=== PATIENT | female | born 2000 | race Caucasian/White ===

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

== ENCOUNTER 2021-07-20 19:49 | Inpatient (IN) | payer OTHER ==
[2021-07-20] MEDS ORDERED: PENICILLIN G POTASSIUM IV 5 MU in D5W MINI-BAG PLUS 100 ML IV STA (21:13)
[2021-07-20] MEDS ORDERED: LACTATED RINGER'S 1000 ML IV STA (21:13)
[2021-07-20] MEDS ORDERED: OXYTOCIN DRIP 30 UNITS in IV 1 EA IV SCH (21:15)
[2021-07-20] MEDS ORDERED: LIDOCAINE 1% MDV 20ML VIAL INFIL PRN (21:15)
[2021-07-20] MEDS ORDERED: OXYTOCIN DRIP 30 UNITS in IV 1 EA IV PRN ×4 (21:15)
[2021-07-20 21:45] LABS: HEMATOCRIT 26.4 % (36.0-47.0); MEAN CORPUSCULAR HEMOGLOBIN 29.4 pg (27.0-33.0); MEAN CORPUSCULAR HGB CONC 34.1 g/dl (32.0-36.5); MEAN CORPUSCULAR VOLUME 86.3 fl (80.0-96.0); PLATELET COUNT, AUTOMATED 291 10^3/uL (150-450); RED BLOOD COUNT 3.06 10^6/uL (4.00-5.40); WHITE BLOOD COUNT 22.1 10^3/uL (4.0-10.0)
[2021-07-20] MEDS: LR 1,000 ML IV SCH (21:49)
[2021-07-21] VITALS (48 sets, daily range): BP systolic 94–155; BP diastolic 50–115
[2021-07-21] MEDS: LR 1,000 ML IV SCH ×3 (00:26→07:33)
[2021-07-21] MEDS ORDERED: FENTANYL 2MCG/ML ROPIVACAINE 0.2% IN 0.9% NACL 100ML IVBAG As Ordered ONE (00:29)
[2021-07-21] MEDS ORDERED: FENTANYL/ROPIVACAINE/NACL BAG 100 ML EPIDURAL SCH (00:30)
[2021-07-21] MEDS ORDERED: ONDANSETRON 4MG/2ML VIAL IV PRN (00:30)
[2021-07-21] MEDS ORDERED: LR 500 ML IV PRN (00:30)
[2021-07-21] MEDS ORDERED: EPIDURAL/PCA KEYS XX PRN (00:30)
[2021-07-21] MEDS ORDERED: NALOXONE INJ 0.4MG/1ML VIAL (J2310 PER 1MG) IV PRN (00:30)
[2021-07-21] MEDS ORDERED: diphenhydrAMINE 50MG/ML VIAL (J1200) IV PRN (00:30)
[2021-07-21] MEDS: PENICILLIN G POTASSIUM IV 2.5 MU in IV 1 EA IV SCH ×2 (02:03→07:30)
[2021-07-21] MEDS: ePHEDrine SULFATE 25 MG/5 ML(5MG/ML) SYRINGE IVP PRN ×3 (03:11→03:18)
[2021-07-21] MEDS ORDERED: OXYTOCIN INJ 10 UNITS/ML VIAL (J2590) As Ordered ONE (08:04)
[2021-07-21] MEDS ORDERED: OXYTOCIN INJ 10 UNITS/ML VIAL (J2590) IV ONE ×2 (08:15→09:40)
[2021-07-21 09:29] LABS: CORD GAS ABE A -5.1; CORD GAS HCO3 A 20.7 MEQ/L; CORD GAS O2 SAT A 72.2 %; CORD GAS PCO2 A 41.2 mmHg; CORD GAS PH A 7.319 UNITS; CORD GAS PO2 A 30.8 mmHg; CORD GAS SBC A 19.7 MEQ/L
[2021-07-21 09:31] LABS: CORD GAS ABE V -3.4; CORD GAS HCO3 V 22.9 MEQ/L; CORD GAS O2 SAT V 55.4 %; CORD GAS PCO2 V 45.6 mmHg; CORD GAS PH V 7.319 UNITS; CORD GAS SBC V 20.7 MEQ/L; CORD GAS TCO2 V 24.3 MEQ/L
[2021-07-21] MEDS ORDERED: DIBUCAINE 1% OINTMENT 30GM TOP PRN (10:00)
[2021-07-21] MEDS ORDERED: DOCUSATE SODIUM 100MG CAPSULE PO PRN (10:00)
[2021-07-21] MEDS ORDERED: METHYLERGONOVINE MALEATE 0.2 MG TAB PO PRN (10:00)
[2021-07-21] MEDS ORDERED: ACETAMINOPHEN 500 MG TAB PO PRN (10:00)
[2021-07-21] MEDS ORDERED: LR 1,000 ML IV SCH (10:00)
[2021-07-21] MEDS ORDERED: ANUSOL HC CREAM 30GM TOP PRN (10:00)
[2021-07-21] MEDS ORDERED: RHOGAM 300 MCG (1500 IU) INJ (J2790) IM SCH (10:00)
[2021-07-21] MEDS ORDERED: ACETAMINOPHEN TAB 650MG DOSE (2X325MG) PO PRN (10:00)
[2021-07-21] MEDS ORDERED: OXYTOCIN DRIP 30 UNITS in IV 1 EA IV ONE (10:00)
[2021-07-21] MEDS ORDERED: MOM 30ML SUSPENSION UDC PO PRN (10:00)
[2021-07-21] MEDS: IBUPROFEN 600MG TAB PO PRN ×2 (10:27→18:41)
[2021-07-21] MEDS: PRENATAL VITAMINS CHEWABLE TABLET PO SCH (11:45)
[2021-07-22] MEDS: IBUPROFEN 600MG TAB PO PRN (05:49)
[2021-07-22 06:04] VITALS: BP 121/73
[2021-07-22] MEDS ORDERED: IBUP-1022 PO (06:44)
[2021-07-22] MEDS ORDERED: PRENCHW PO (06:44)
[2021-07-22] MEDS ORDERED: COLA100C5 PO (06:44)
[2021-07-22] MEDS: PRENATAL VITAMINS CHEWABLE TABLET PO SCH (07:32)
[2021-07-22 07:43] LABS: HEMATOCRIT 31.6 % (36.0-47.0); HEMOGLOBIN 10.9 g/dl (12.0-15.5); MEAN CORPUSCULAR HEMOGLOBIN 29.8 pg (27.0-33.0); MEAN CORPUSCULAR HGB CONC 34.5 g/dl (32.0-36.5); MEAN CORPUSCULAR VOLUME 86.3 fl (80.0-96.0); PLATELET COUNT, AUTOMATED 253 10^3/uL (150-450); RED BLOOD COUNT 3.66 10^6/uL (4.00-5.40); WHITE BLOOD COUNT 16.8 10^3/uL (4.0-10.0)
[2021-07-23] MEDS ORDERED: MEASLES,MUMPS,RUBELLA VACCINE INJ (MMR-II) (90707) SC ONE (09:00)
== END 2021-07-22 13:09 | disposition home or self-care (01) | DRG 807 ==
LOC: M LDO 19:49 → M LDI 21:28 → M OBS 07-21 11:40
PROVIDERS: ADMIT Obstetrics & Gynecology; ATTEND Obstetrics & Gynecology
PROC: 10E0XZZ Delivery of Products of Conception, External Approach (ICD-10-PCS; principal; 2021-07-21)
PROC: 0HQ9XZZ Repair Perineum Skin, External Approach (ICD-10-PCS; 2021-07-21)
DX: O99.824 Streptococcus B carrier state complicating childbirth (principal); Z37.0 Single live birth; Z3A.37 37 weeks gestation of pregnancy; O70.0 First degree perineal laceration during delivery